=== PATIENT | female | born 1990 | race Caucasian/White ===

== ENCOUNTER 2020-02-22 03:16 | Inpatient (IN) | payer OTHER ==
[~2020-02-22] VITALS: Ht 154.9 cm; Wt 78.9 kg
[2020-02-22] MEDS ORDERED: PRENATAL TABLE1 EAC1 PO (03:22)
== END 2020-02-24 17:03 | disposition home or self-care (01) | DRG 807 ==
LOC: LDR 03:16 → OB/GYN 08:59
PROVIDERS: ADMIT Specialist
PROC: 10E0XZZ Delivery of Products of Conception, External Approach (ICD-10-PCS; principal; 2020-02-22)
PROC: 4A1HXCZ Monitoring of Products of Conception, Cardiac Rate, External Approach (ICD-10-PCS; 2020-02-22)
PROC: 3E033VJ Introduction of Other Hormone into Peripheral Vein, Percutaneous Approach (ICD-10-PCS; 2020-02-22)
PROC: 0UQGXZZ Repair Vagina, External Approach (ICD-10-PCS; 2020-02-22)
DX: O71.4 Obstetric high vaginal laceration alone (principal); Z37.0 Single live birth; Z3A.39 39 weeks gestation of pregnancy